=== PATIENT | male | born 1995 | race Asian ===

== ENCOUNTER 2017-03-04 04:14 | Emergency (ER) | payer SELFPAY ==
[~2017-03-04] VITALS: Ht 167.6 cm; Wt 47.0 kg
[2017-03-04 04:25] VITALS: BP 122/92; PULSE 96; RESP 16; TEMP 97.6; O2SAT 97
[2017-03-04 04:41] VITALS: PULSE 82; RESP 16; O2SAT 98
[2017-03-04] MEDS ORDERED: BACT800T5 PO (04:41)
[2017-03-04] MEDS ORDERED: CEPH-460 PO (04:41)
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
[2017-03-04] MEDS ORDERED: SULFAMETHOXAZOLE-TRIMETHOPRIM DS 800-160 MG TAB PO ONE (04:45)
[2017-03-04] MEDS ORDERED: TETANUS/DIPHTHERIA TOXOID ADULT 0.5 ML VIAL IM ONE (04:45)
[2017-03-04] MEDS ORDERED: CEPHALEXIN MONOHYDRATE 500 MG CAP PO ONE (04:45)
[2017-03-04 04:49] VITALS: BP 136/80; PULSE 82; RESP 16; O2SAT 98
== END 2017-03-04 05:21 | disposition home or self-care (01) ==
LOC: PHED 04:14
DX: L03.116 Cellulitis of left lower limb (principal); Z23 Encounter for immunization
CPT/HCPCS: 87070; 90471; 90714